=== PATIENT | female | born 1950 | race Caucasian/White ===

== ENCOUNTER 2020-07-19 11:50 | Emergency (ER) | payer SELFPAY ==
[~2020-07-19] VITALS: Ht 147.3 cm; Wt 46.0 kg
--- NOTE | 2020-07-19 12:15 | NUR ---
PT [facility] ON A LEGAL HOLD BY PD FOR FAILURE TO THRIVE. PT WAS LIVING IN HER CAR, THAT ISN'T RUNNING. PT STATES SHE HAS BEEN HAVING SOB FOR ABOUT A MONTH AND HAS A COUGH. PT DENIES ABD OR CP PAIN. PT DENIES N/V AND DIARRHEA. PT STATES SHE IS JUST HUNGRY AT THIS TIME. SUNIL, [employer] BEDS[employer].
[2020-07-19] MEDS ORDERED: PLEASE ENTER HEIGHT AND WEIGHT MC SCH (12:30)
[2020-07-19] MEDS ORDERED: PLEASE ENTER ALLERGIES MC SCH (12:30)
--- NOTE | 2020-07-19 13:11 | NUR ---
PT EATING LUNCH
[2020-07-19] MEDS ORDERED: HALOPERIDOL 5 MG TABLET ONE (13:24)
[2020-07-19] MEDS ORDERED: TRIHEXYPHENIDYL 2MG TABLET PO ONE (13:30)
[2020-07-19] MEDS ORDERED: HALOPERIDOL 5 MG TABLET PO SCH (13:30)
--- NOTE | 2020-07-19 14:05 | NUR ---
requested meds from pharmacy still awaiting arrival.
[2020-07-19 15:42] VITALS: BP 149/72
== END 2020-07-19 15:44 | disposition home or self-care (01) ==
LOC: ED 12:33
DX: J45.31 Mild persistent asthma with (acute) exacerbation (principal); B34.9 Viral infection, unspecified; R09.02 Hypoxemia; R05 Cough; R06.02 Shortness of breath; R62.7 Adult failure to thrive; F17.200 Nicotine dependence, unspecified, uncomplicated
CPT/HCPCS: 71045; 99285; J7512